=== PATIENT | female | born 1970 | race Caucasian/White ===

== ENCOUNTER 2016-12-12 19:54 | Emergency (ER) | payer OTHER ==
[2016-12-12] MEDS ORDERED: IBUPROFEN 800 MG TAB As Ordered ONE (20:38)
--- NOTE | 2016-12-12 21:48 | EDDOCDS ---
Physician Documentation [facility] Name: Tori Merritt Age: 46 yrs Sex: Female : 1970 Arrival Date: 12/12/2016 Time: 19:54 Bed PR Private MD: Raymundo Hameed G Disposition: 12/12/16 21:39 Discharged to Home/Self Care. Impression: Sprain of lateral collateral ligament of left knee. - Condition is Stable. - Discharge Instructions: Knee Immobilizer, Knee Sprain. - Prescriptions for [place] 5- 325 mg Oral Tablet - take 1 tablet by ORAL route every 6 hours As needed MDD: 4 tabs; 20 tablet. - Medication Reconciliation, Local Pharmacy Hours form. - Follow up: Rom Jean Baptiste; When: Call to arrange an appointment; Reason: Recheck today's complaints, Continuance of care. - Problem is new. - Symptoms are unchanged. Historical: - Allergies: morphine (hallucinations); - Home Meds: 1. paroxetine HCl 10 mg/5 mL Oral susp 20 mL once daily 2. prednisone 20 mg Oral tab 3 tabs tapering dose 3. atenolol 50 mg Oral tab 1 tab once daily 4. captopril 25 mg Oral tab 1 tab 2 times per day - PMHx: Hypertension; Arrhythmia; Kidney stones; - PSHx: Lithotripsy; ; Tubal ligation; ablation, cervix; - Social history: Smoking status: Patient states was never smoker of tobacco. No barriers to communication noted, The patient speaks fluent Urdu, Speaks appropriately for age. - Family history: Not pertinent. - : The pt / caregiver states he / she is not on anticoagulants. Home medication list is obtained from the patient. - Exposure Risk Screening:: None identified. 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 1 in. (154.94 cm) (R); Pain 10/10; 21:32 BP 136 / 88; Pulse 61; Resp 18; Temp 98.3(T); Pulse Ox 97% on R/A; Pain 8/10; ar3 21:47 Pain 6/10; slm 19:55 Body Mass Index 31.18 (74.84 kg, 154.94 cm) elp MDM: 20:37 Ibuprofen 800 mg PO once ordered. mo1 20:38 Knee, Complete Ordered. EDMS 20:46 Financial registration complete. kf3 20:46 [facility] Payment Agreement was scanned into [employer] and attached to record. kf3 21:35 Crutches ordered. mo1 21:45 Esvin Wrap ordered. mo1 Administered Medications: 20:40 Drug: Ibuprofen 800 mg [ibuprofen 800 mg tablet (1 tabs)] Route: PO; cz 21:47 Follow up: Pain 6/10 Adult slm Signatures: Dispatcher [employer] EDMS Marce Brewer RN RN kmg1 Yousuf Torres RN RN cz Alfredo Fallon, Reg Reg kf3 Ted Mehta, PA PA mo1 Amy Horowitz,FRANKI FORKLIFT SUPERVISOR slm The chart was reviewed and I authenticate all verbal orders and agree with the evaluation and treatment provided.Corrections: (The following items were deleted from the chart) 21:44 21:35 Knee Immobilizer ordered. mo1 mo1 Attachments: 20:46 [place] Payment Agreement kf3 MTDD
--- NOTE | 2016-12-12 21:48 | EDDOCDS ---
Nurse's Notes [facility] Name: Tori Merritt Age: 46 yrs Sex: Female : 1970 Arrival Date: 12/12/2016 Time: 19:54 Bed PR1 / Private MD: Raymundo Hameed G Diagnosis: Sprain of lateral collateral ligament of left knee Presentation: 12/12 19:57 Presenting complaint: Patient states: Left knee pain for 2 weeks. Swelling worsening km over that time. Feels a lump on the back of the knee. Was seen at [facility] and told to follow up with ortho. "Knee is not where it should be." Was also seen in ER in the [place]. They in formed her that she needed several tests and procedures but was told "we don't want to give you a big bill tonight." Tonight was bowling and heard an snap in the knee. Now unable to bear weight. Adult Sepsis Screening: The patient does not have new or worsening altered mentation. Patient's respiratory rate is less than 22. Systolic blood pressure is greater than 100. Patient has a qSOFA score of 0- Negative Sepsis Screen. Suicide/Homicide risk assessment- the patient denies having any suicidal and/or homicidal ideations and does not present with any other emotional, behavioral or mental health complaints. Status: Patient is not a software engineer web services or dependent. Transition of care: patient was not received from another setting of care. 19:57 Acuity: MARY JANE Level 4 [facility] 19:57 Method Of Arrival: Walkin/Carried/Asstd [facility] Triage Assessment: 20:08 General: Appears in no apparent distress, uncomfortable, Behavior is appropriate for [facility] age, cooperative. Pain: Location: lateral aspect of left knee, posterior aspect of left knee, medial aspect of left knee and left knee Pain currently is 10 out of 10 on a pain scale. Quality of pain is described as stabbing, throbbing. Pt Declines HIV testing. Musculoskeletal: Reports pain in lateral aspect of left knee, posterior aspect of left knee, medial aspect of left knee and left knee. 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 paroxetine HCl 10 mg/5 mL Oral susp 20 mL once daily 2. prednisone 20 mg Oral tab 3 tabs tapering dose 3. atenolol 50 mg Oral tab 1 tab once daily 4. captopril 25 mg Oral tab 1 tab 2 times per day - PMHx: Hypertension; Arrhythmia; Kidney stones; - PSHx: Lithotripsy; ; Tubal ligation; ablation, cervix; - Social history: Smoking status: Patient states was never smoker of tobacco. No barriers to communication noted, The patient speaks fluent Luxembourgish, Speaks appropriately for age. - Family history: Not pertinent. - : The pt / caregiver states he / she is not on anticoagulants. Home medication list is obtained from the patient. - Exposure Risk Screening:: None identified. Screenin:41 Screening information is obtained from the patient. Fall risk: No risks identified. cz Assistance ADL's: requires no assistance with activities of daily living. Abuse/DV Screen: The patient / caregiver reports he/she is: not in a situation that causes fear, pain or injury. Nutritional screening: No deficits noted. home support is adequate. 21:47 Advance Directives: Currently, there is no health care proxy. There is no active DNR [facility] order. There is no living will. There is no Power of Application Lead. Advance directive information has not previously been placed in an [facility] medical record. Further advance directive information is declined. Assessment: 20:41 General: alert female with left knee and leg pain here for evaluation. cz 21:46 Reassessment: Patient appears in no apparent distress at this time. [facility] Vital Signs: 19:55 BP 152 / 97; Pulse 81; Resp 18; Temp 98.1; Pulse Ox 97% on R/A; Weight 74.84 kg (R); elp Height 5 ft. 1 in. (154.94 cm) (R); Pain 10/10; 21:32 BP 136 / 88; Pulse 61; Resp 18; Temp 98.3(T); Pulse Ox 97% on R/A; Pain 8/10; ar3 21:47 Pain 6/10; slm 19:55 Body Mass Index 31.18 (74.84 kg, 154.94 cm) [facility] Vitals: 19:55 Log In Time: December 12, 2016 at 19:53. [facility] ED Course: 19:55 Patient visited by Rosario Tabor PCA. elp 19:55 Raymundo Hameed is Private Physician. elp 19:55 Patient moved to Waiting elp 19:56 Patient moved to Pre RCE elp 20:02 Triage Initiated kmg1 20:17 Patient moved to Triage 2 rs3 20:20 [facility] mo1 20:20 Bar Olmedo DO is Attending Physician. mo1 20:27 Patient visited by Ted Mehta PA. mo1 20:39 Patient moved to TR3 ar3 20:41 The patient / caregiver is instructed regarding the plan of care and ED course. cz 20:41 No IV's were initiated during this patient's visit. cz 20:46 [place] Payment Agreement was scanned into [employer] and attached to record. kf3 21:21 Patient moved to Radiology susy 21:30 Patient moved to PR1 / 25 ar3 21:33 Patient visited by Pooja Kenny PCA. ar3 21:39 Rom Jean Baptiste is Referral Physician. mo1 21:47 Patient visited by Amy Horowitz LPN. slm 21:47 No procedures done that require assistance. slm Administered Medications: 20:40 Drug: Ibuprofen 800 mg [ibuprofen 800 mg tablet (1 tabs)] Route: PO; cz 21:47 Follow up: Pain 05/07 Adult slm Order Results: There are currently no results for this order. Outcome: 21:39 Discharge ordered by Provider. mo1 21:46 Discharge Assessment: Patient awake, alert and oriented x 3. No cognitive and/or slm functional deficits noted. Patient verbalized understanding of disposition instructions. The following High Risk Discharge criteria are identified: None. Discharged to home with crutches. Condition: stable. Discharge instructions given to patient, Instructed on discharge instructions, follow up and referral plans. medication usage, no driving heavy equipment, crutch walking, Demonstrated understanding of instructions, medications, Pt was receptive of discharge instructions/ teaching. Prescriptions given X 1. No special radiology studies were completed. Property :Personal belongings accompany Pt. 21:47 Discharge Assessment: patient administered narcotics - no. slm 21:47 Patient left the ED. slm Signatures: Marce Brewer RN RN [facility] Yousuf Torres RN RN cz Giovanny Easley Kris, Reg Reg kf3 Malini Garland,RN RN rs3 Pooja Kenny, RENEWABLE ENERGY TRADER RENEWABLE ENERGY TRADER ar3 Ted Mehta PA PA mo1 Rosario Tabor, RENEWABLE ENERGY TRADER RENEWABLE ENERGY TRADER elp Amy Horowitz,INVENTORY ADMINISTRATOR INVENTORY ADMINISTRATOR slm MTDD
--- NOTE | 2016-12-13 02:47 | REP ---
Clinical: Trauma. Technique: AP, lateral, bilateral oblique and sunrise views left knee . Findings: The osseous structures and joint spaces are intact and normal for age. There is no evidence for acute fracture or dislocation. No joint effusion is appreciated. Surrounding soft tissues are unremarkable. No subcutaneous emphysema or radiodense foreign body. Impression: Age appropriate examination. No acute fracture or dislocation. Signed by Jerad Carter MD 12/13/2016 02:39 A
--- NOTE | 2016-12-14 22:48 | EDDOCDS ---
Physician Documentation [facility] Name: Tori Merritt Age: 46 yrs Sex: Female : 1970 Arrival Date: 12/12/2016 Time: 19:54 Bed PR Private MD: Raymundo Hameed G Disposition: 12/12/16 21:39 Discharged to Home/Self Care. Impression: Sprain of lateral collateral ligament of left knee. - Condition is Stable. - Discharge Instructions: Knee Immobilizer, Knee Sprain. - Prescriptions for [place] 5- 325 mg Oral Tablet - take 1 tablet by ORAL route every 6 hours As needed MDD: 4 tabs; 20 tablet. - Medication Reconciliation, Local Pharmacy Hours form. - Follow up: Rom Jean Baptiste; When: Call to arrange an appointment; Reason: Recheck today's complaints, Continuance of care. - Problem is new. - Symptoms are unchanged. Historical: - Allergies: morphine (hallucinations); - Home Meds: 1. paroxetine HCl 10 mg/5 mL Oral susp 20 mL once daily 2. prednisone 20 mg Oral tab 3 tabs tapering dose 3. atenolol 50 mg Oral tab 1 tab once daily 4. captopril 25 mg Oral tab 1 tab 2 times per day - PMHx: Hypertension; Arrhythmia; Kidney stones; - PSHx: Lithotripsy; ; Tubal ligation; ablation, cervix; - Social history: Smoking status: Patient states was never smoker of tobacco. No barriers to communication noted, The patient speaks fluent Georgian, Speaks appropriately for age. - Family history: Not pertinent. - : The pt / caregiver states he / she is not on anticoagulants. Home medication list is obtained from the patient. - Exposure Risk Screening:: None identified. 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 1 in. (154.94 cm) (R); Pain 10/10; 21:32 BP 136 / 88; Pulse 61; Resp 18; Temp 98.3(T); Pulse Ox 97% on R/A; Pain 8/10; ar3 21:47 Pain 6/10; slm 19:55 Body Mass Index 31.18 (74.84 kg, 154.94 cm) elp MDM: 20:37 Ibuprofen 800 mg PO once ordered. mo1 20:38 Knee, Complete Ordered. EDMS 20:46 Financial registration complete. kf3 20:46 [facility] Payment Agreement was scanned into [employer] and attached to record. kf3 21:35 Crutches ordered. mo1 21:45 Esvin Wrap ordered. mo1 22:29 T-Sheet-- Draft Copy was scanned into [employer] and attached to record. klr Administered Medications: 20:40 Drug: Ibuprofen 800 mg [ibuprofen 800 mg tablet (1 tabs)] Route: PO; cz 21:47 Follow up: Pain 6/10 Adult slm Signatures: Dispatcher [employer] EDMS Marce Brewer RN RN kmg1 Yousuf Torres RN RN cz Alfredo Fallon, Reg Reg kf3 Ted Mehta, PA PA mo1 Amy Horowitz LPN LPN slm Tracy Viveros klsarah The chart was reviewed and I authenticate all verbal orders and agree with the evaluation and treatment provided.Corrections: (The following items were deleted from the chart) 21:44 21:35 Knee Immobilizer ordered. mo1 mo1 Attachments: 20:46 [facility] Payment Agreement kf3 22:29 T-Sheet-- Draft Copy klr Chart Complete MTDD
--- NOTE | 2016-12-14 22:48 | EDDOCDS ---
[facility] Name: Tori Merr[facility] Age: 46 yrs Sex: Female : 1970 Arrival Date: 12/12/2016 Time: 19:54 Bed PR Private MD: Raymundo Hameed G Disposition: 12/12/16 21:39 Discharged to Home/Self Care. Impression: Sprain of lateral collateral ligament of left knee. - Condition is Stable. - Discharge Instructions: Knee Immobilizer, Knee Sprain. - Prescriptions for [place] 5- 325 mg Oral Tablet - take 1 tablet by ORAL route every 6 hours As needed MDD: 4 tabs; 20 tablet. - Medication Reconciliation, Local Pharmacy Hours form. - Follow up: Rom Jean Baptiste; When: Call to arrange an appointment; Reason: Recheck today's complaints, Continuance of care. - Problem is new. - Symptoms are unchanged. Historical: - Allergies: morphine (hallucinations); - Home Meds: 1. paroxetine HCl 10 mg/5 mL Oral susp 20 mL once daily 2. prednisone 20 mg Oral tab 3 tabs tapering dose 3. atenolol 50 mg Oral tab 1 tab once daily 4. captopril 25 mg Oral tab 1 tab 2 times per day - PMHx: Hypertension; Arrhythmia; Kidney stones; - PSHx: Lithotripsy; ; Tubal ligation; ablation, cervix; - Social history: Smoking status: Patient states was never smoker of tobacco. No barriers to communication noted, The patient speaks fluent Italian, Speaks appropriately for age. - Family history: Not pertinent. - : The pt / caregiver states he / she is not on anticoagulants. Home medication list is obtained from the patient. - Exposure Risk Screening:: None identified. 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 1 in. (154.94 cm) (R); Pain 10/10; 21:32 BP 136 / 88; Pulse 61; Resp 18; Temp 98.3(T); Pulse Ox 97% on R/A; Pain 8/10; ar3 21:47 Pain 6/10; slm 19:55 Body Mass Index 31.18 (74.84 kg, 154.94 cm) elp MDM: 20:37 Ibuprofen 800 mg PO once ordered. mo1 20:38 Knee, Complete Ordered. EDMS 20:46 Financial registration complete. kf3 20:46 [facility] Payment Agreement was scanned into [email or web address] and attached to record. kf3 21:35 Crutches ordered. mo1 21:45 Esvin Wrap ordered. mo1 22:29 T-Sheet-- Draft Copy was scanned into [employer] and attached to record. klr Administered Medications: 20:40 Drug: Ibuprofen 800 mg [ibuprofen 800 mg tablet (1 tabs)] Route: PO; cz 21:47 Follow up: Pain 6/10 Adult slm Signatures: Dispatcher [employer] EDMS Marce Brewer RN RN kmg1 Yousuf Torres RN RN cz Alfredo Fallon, Reg Reg kf3 Ted Mehta, PA PA mo1 Amy Horowitz LPN LPN slm Tracy Viveros klsarah The chart was reviewed and I authenticate all verbal orders and agree with the evaluation and treatment provided.Corrections: (The following items were deleted from the chart) 21:44 21:35 Knee Immobilizer ordered. mo1 mo1 Attachments: 20:46 [facility] Payment Agreement kf3 22:29 T-Sheet-- Draft Copy klr Chart Complete MTDD
--- NOTE | 2016-12-14 22:48 | EDDOCDS ---
Nurse's Notes [facility] Name: Tori Merritt Age: 46 yrs Sex: Female : 1970 Arrival Date: 12/12/2016 Time: 19:54 Bed PR1 / Private MD: Raymundo Hameed G Diagnosis: Sprain of lateral collateral ligament of left knee Presentation: 12/12 19:57 Presenting complaint: Patient states: Left knee pain for 2 weeks. Swelling worsening km over that time. Feels a lump on the back of the knee. Was seen at [facility] and told to follow up with ortho. "Knee is not where it should be." Was also seen in ER in the [place]. They in formed her that she needed several tests and procedures but was told "we don't want to give you a big bill tonight." Tonight was bowling and heard an snap in the knee. Now unable to bear weight. Adult Sepsis Screening: The patient does not have new or worsening altered mentation. Patient's respiratory rate is less than 22. Systolic blood pressure is greater than 100. Patient has a qSOFA score of 0- Negative Sepsis Screen. Suicide/Homicide risk assessment- the patient denies having any suicidal and/or homicidal ideations and does not present with any other emotional, behavioral or mental health complaints. Status: Patient is not a sales and service engineer or dependent. Transition of care: patient was not received from another setting of care. 19:57 Acuity: [facility] [place] Level 4 [facility] 19:57 Method Of Arrival: Walkin/Carried/Asstd [facility] Triage Assessment: 20:08 General: Appears in no apparent distress, uncomfortable, Behavior is appropriate for [facility] age, cooperative. Pain: Location: lateral aspect of left knee, posterior aspect of left knee, medial aspect of left knee and left knee Pain currently is 10 out of 10 on a pain scale. Quality of pain is described as stabbing, throbbing. Pt Declines HIV testing. Musculoskeletal: Reports pain in lateral aspect of left knee, posterior aspect of left knee, medial aspect of left knee and left knee. 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 paroxetine HCl 10 mg/5 mL Oral susp 20 mL once daily 2. prednisone 20 mg Oral tab 3 tabs tapering dose 3. atenolol 50 mg Oral tab 1 tab once daily 4. captopril 25 mg Oral tab 1 tab 2 times per day - PMHx: Hypertension; Arrhythmia; Kidney stones; - PSHx: Lithotripsy; ; Tubal ligation; ablation, cervix; - Social history: Smoking status: Patient states was never smoker of tobacco. No barriers to communication noted, The patient speaks fluent Slovenian, Speaks appropriately for age. - Family history: Not pertinent. - : The pt / caregiver states he / she is not on anticoagulants. Home medication list is obtained from the patient. - Exposure Risk Screening:: None identified. Screenin:41 Screening information is obtained from the patient. Fall risk: No risks identified. cz Assistance ADL's: requires no assistance with activities of daily living. Abuse/DV Screen: The patient / caregiver reports he/she is: not in a situation that causes fear, pain or injury. Nutritional screening: No deficits noted. home support is adequate. 21:47 Advance Directives: Currently, there is no health care proxy. There is no active DNR [facility] order. There is no living will. There is no Power of [place]. Advance directive information has not previously been placed in an [facility] medical record. Further advance directive information is declined. Assessment: 20:41 General: alert female with left knee and leg pain here for evaluation. cz 21:46 Reassessment: Patient appears in no apparent distress at this time. [facility] Vital Signs: 19:55 BP 152 / 97; Pulse 81; Resp 18; Temp 98.1; Pulse Ox 97% on R/A; Weight 74.84 kg (R); elp Height 5 ft. 1 in. (154.94 cm) (R); Pain 10/10; 21:32 BP 136 / 88; Pulse 61; Resp 18; Temp 98.3(T); Pulse Ox 97% on R/A; Pain 8/10; ar3 21:47 Pain 6/10; slm 19:55 Body Mass Index 31.18 (74.84 kg, 154.94 cm) [facility] Vitals: 19:55 Log In Time: December 12, 2016 at 19:53. [facility] ED Course: 19:55 Patient visited by Rosario Tabor PCA. elp 19:55 Raymundo Hameed is Private Physician. elp 19:55 Patient moved to Waiting elp 19:56 Patient moved to Pre RCE elp 20:02 Triage Initiated kmg1 20:17 Patient moved to Triage 2 rs3 20:20 Ted Mehta PA is PHCP. mo1 20:20 Bar Omledo DO is Attending Physician. mo1 20:27 Patient visited by Ted Mehta PA. mo1 20:39 Patient moved to TR3 ar3 20:41 The patient / caregiver is instructed regarding the plan of care and ED course. cz 20:41 No IV's were initiated during this patient's visit. cz 20:46 [facility] Payment Agreement was scanned into [employer] and attached to record. kf3 21:21 Patient moved to Radiology susy 21:30 Patient moved to PR1 / 25 ar3 21:33 Patient visited by Pooja Kenny PCA. ar3 21:39 Rom Jean Baptiste is Referral Physician. mo1 21:47 Patient visited by Amy Horowitz LPN. slm 21:47 No procedures done that require assistance. slm 22:29 T-Sheet-- Draft Copy was scanned into [employer] and attached to record. klr 12/13 02:48 Knee, Complete Returned. EDMS Administered Medications: 12/12 20:40 Drug: Ibuprofen 800 mg [ibuprofen 800 mg tablet (1 tabs)] Route: PO; cz 21:47 Follow up: Pain 05/07 Adult slm Order Results: Radiology Order: Knee, Complete Test: Knee, Complete REASON FOR EXAMINATION: Trauma; Clinical: Trauma.; ; Technique: AP, lateral, bilateral oblique and sunrise views left knee .; ; Findings: The osseous structures and joint spaces are intact and normal for age.; There is no evidence for acute fracture or dislocation. No joint effusion is; appreciated. Surrounding soft tissues are unremarkable. No subcutaneous; emphysema or radiodense foreign body.; ; Impression:; Age appropriate examination. No acute fracture or dislocation.; ; ; Signed by; Jerad Carter MD 12/13/2016 02:39 A; Outcome: 21:39 Discharge ordered by Provider. mo1 21:46 Discharge Assessment: Patient awake, alert and oriented x 3. No cognitive and/or slm functional deficits noted. Patient verbalized understanding of disposition instructions. The following High Risk Discharge criteria are identified: None. Discharged to home with crutches. Condition: stable. Discharge instructions given to patient, Instructed on discharge instructions, follow up and referral plans. medication usage, no driving heavy equipment, crutch walking, Demonstrated understanding of instructions, medications, Pt was receptive of discharge instructions/ teaching. Prescriptions given X 1. No special radiology studies were completed. Property :Personal belongings accompany Pt. 21:47 Discharge Assessment: patient administered narcotics - no. slm 21:47 Patient left the ED. [facility] Signatures: Dispatcher [employer] EDMS Marce Brewer, RN RN kmg1 Yousuf Torres RN RN Giovanny Yee Kris, Reg Reg kf3 Malini GarlandRN RN rs3 Pooja Kenny, HEALTH AND WELLNESS DIRECTOR HEALTH AND WELLNESS DIRECTOR ar3 Ted Mehta PA PA mo1 Rosario Tabor, HEALTH AND WELLNESS DIRECTOR HEALTH AND WELLNESS DIRECTOR elp Amy Horowitz LPN LPN Tracy Mckeon Chart Complete RANDI
== END 2016-12-12 21:47 | disposition home or self-care (01) ==
LOC: M ED 19:54
DX: S83.92XA Sprain of unspecified site of left knee, initial encounter (principal); X58.XXXA Exposure to other specified factors, initial encounter; Y92.019 Unspecified place in single-family (private) house as the place of occurrence of the external cause; Y93.E9 Activity, other interior property and clothing maintenance; Y99.0 Civilian activity done for income or pay; I10 Essential (primary) hypertension; I49.9 Cardiac arrhythmia, unspecified; Z87.442 Personal history of urinary calculi; Z79.52 Long term (current) use of systemic steroids; Z79.899 Other long term (current) drug therapy; Z88.8 Allergy status to other drugs, medicaments and biological substances

== ENCOUNTER → 2017-01-14 | Outpatient (CLI) | payer OTHER ==
--- NOTE | 2017-01-14 19:27 | REP ---
Clinical: Left-sided pain and swelling . Technique: Benites scale and color Doppler evaluation using linear high frequency transducer. Findings: Ultrasound examination of the left lower extremity deep venous structures from the common femoral vein to the popliteal vein demonstrates normal compressibility flow and wave patterns in response to respiration and augmentation. There is no evidence for deep venous thrombosis. Impression: No evidence for deep venous thrombosis. Signed by Jerad Carter MD 01/14/2017 07:18 P
== END ==
LOC: M RAD 18:16
PROVIDERS: ATTEND Physician Assistant Surgical
DX: M25.562 Pain in left knee (principal)

== ENCOUNTER → 2018-03-13 | Outpatient (CLI) | payer OTHER | LOC: M RAD 15:35 | DX: N63.10 Unspecified lump in the right breast, unspecified quadrant (principal) | CPT/HCPCS: 77065 ==

== ENCOUNTER → 2018-03-16 | Outpatient (CLI) | payer OTHER | LOC: M RAD 12:41 | DX: M25.562 Pain in left knee (principal) | CPT/HCPCS: 73721 ==

== ENCOUNTER → 2018-08-18 | Outpatient (REF) | payer OTHER | LOC: M SFHCPLAZ 15:39 | DX: D22.5 Melanocytic nevi of trunk (principal) ==

== ENCOUNTER → 2019-01-16 | Outpatient (REF) | payer OTHER | LOC: M SFHCPLAZ 09:55 | PROVIDERS: ATTEND Dermatology | DX: D23.4 Other benign neoplasm of skin of scalp and neck (principal) ==

== ENCOUNTER → 2019-04-08 | Outpatient (CLI) | payer OTHER ==
[2019-04-09 09:59] LABS: RUBELLA IgG QUALITATIVE IMMUNE (IMMUNE)
== END ==
LOC: M LAB 15:16
PROVIDERS: ATTEND Physician Assistant
DX: Z01.84 Encounter for antibody response examination (principal)

== ENCOUNTER → 2019-10-31 | Outpatient (CLI) | payer OTHER ==
--- NOTE | 2019-10-31 07:54 | REP ---
Clinical: Left lower extremity pain status post trauma . Technique: Benites scale and color Doppler evaluation using linear high frequency transducer. Findings: Ultrasound examination of the left lower extremity deep venous structures from the common femoral vein to the popliteal vein demonstrates normal compressibility flow and wave patterns in response to respiration and augmentation. There is no evidence for deep venous thrombosis. Impression: No evidence for deep venous thrombosis. Electronically Signed by Jerad Carter MD 10/31/2019 07:45 A
== END ==
LOC: M RAD 06:27
PROVIDERS: ATTEND Orthopaedic Surgery
DX: M79.622 Pain in left upper arm (principal)

== ENCOUNTER 2019-12-27 05:09 | Emergency (ER) | payer OTHER ==
[~2019-12-27] VITALS: Ht 154.9 cm; Wt 79.2 kg
[2019-12-27] MEDS ORDERED: SIMV10TA21 PO (05:41)
[2019-12-27] MEDS ORDERED: CAPT1TAB17 PO (05:41)
[2019-12-27] MEDS ORDERED: PAXI20TA29 PO (05:41)
[2019-12-27] MEDS ORDERED: LEVO25TA5 PO (05:41)
[2019-12-27] MEDS ORDERED: cloNIDine 0.2 MG TAB PO ONE (05:45)
[2019-12-27 05:57] VITALS: BP 167/81
[2019-12-27 05:57] LABS: BASO % 0.4 % (0.0-1.0); EOS # 0.2 10^3/uL (0.0-0.5); EOS % 2.3 % (0.0-3.0); HEMATOCRIT 41.7 % (36.0-47.0); HEMOGLOBIN 12.8 g/dl (12.0-15.5); LYMPH # 2.1 10^3/uL (1.5-5.0); LYMPH % 24.5 % (24.0-44.0); MEAN CORPUSCULAR HEMOGLOBIN 29.1 pg (27.0-33.0); MEAN CORPUSCULAR HGB CONC 30.7 g/dl (32.0-36.5); MEAN CORPUSCULAR VOLUME 94.8 fl (80.0-96.0); MONO # 0.7 10^3/uL (0.0-0.8); MONO % 8.5 % (0.0-5.0); NEUTROPHILS # 5.4 10^3/uL (1.5-8.5); NEUTROPHILS % 63.7 % (36.0-66.0); PLATELET COUNT, AUTOMATED 354 10^3/uL (150-450); WHITE BLOOD COUNT 8.4 10^3/uL (4.0-10.0)
[2019-12-27 06:09] LABS: BLOOD UREA NITROGEN 18 MG/DL (7-18); CALCIUM LEVEL 8.4 MG/DL (8.5-10.1); CARBON DIOXIDE LEVEL 30 MEQ/L (21-32); CHLORIDE LEVEL 103 MEQ/L (98-107); CREATININE FOR GFR 0.74 MG/DL (0.55-1.30); GLOMERULAR FILTRATION RATE > 60.0 (>58); GLUCOSE, FASTING 100 MG/DL (70-100); POTASSIUM SERUM 4.3 MEQ/L (3.5-5.1); SODIUM LEVEL 139 MEQ/L (136-145)
[2019-12-27] MEDS ORDERED: SUMAtriptan SUCCINATE 6 MG/0.5 ML VIAL SC ONE (06:15)
--- NOTE | 2019-12-27 06:18 | REPVR ---
PROCEDURE INFORMATION: Exam: CT Head Without Contrast Exam date and time: 12/27/2019 5:40 AM Age: 49 years old Clinical indication: Pain; Headache not specified; Patient HX: High BP; Additional info: CARTER TECHNIQUE: Imaging protocol: Computed tomography of the head without contrast. Radiation optimization: All CT scans at this facility use at least one of these dose optimization techniques: automated exposure control; mA and/or kV adjustment per patient size (includes targeted exams where dose is matched to clinical indication); or iterative reconstruction. COMPARISON: CT Head without contrast 04/30/2015 3:45 PM FINDINGS: Brain: The cortical/white matter interfaces are preserved throughout the brain. There is no evidence of intracranial hemorrhage. No parenchymal mass lesions identified. Ventricles: The ventricular system is normal in size and configuration. Bones/joints: No acute fractures of the skull are identified. Sinuses: The visualized paranasal sinuses are clear. Mastoid air cells: The visualized mastoid air cells are clear. Soft tissues: The soft tissues appear unremarkable. IMPRESSION: Normal appearance of the brain. Electronically signed by: Danita Scherer On 12/27/2019 06:17:56 AM
[2019-12-27 07:14] LABS: ERYTHROCYTE SEDIMENTATION RATE 10 mm/hr (0-20)
[2019-12-27] MEDS ORDERED: KETOROLAC 30 MG/ML VIAL (J1885) IV ONE (07:15)
[2019-12-27] MEDS ORDERED: METOCLOPRAMIDE INJ 10MG/2ML VIAL (J2765) IV ONE (07:15)
[2019-12-27] MEDS ORDERED: NS 1,000 ML IV ONE (07:15)
[2019-12-27] MEDS ORDERED: ACETAMINOPHEN 500 MG TAB PO ONE (07:15)
[2019-12-27] MEDS ORDERED: VALPROATE SOD INJ 1,000 MG in D5W 50 ML IV ONE ×2 (09:30→10:00)
[2019-12-27] MEDS ORDERED: MAG SULF 1GM/100ML (MAG RUN) 1 GM in IV 1 EA IV ONE (09:30)
[2019-12-27 09:53] LABS: HCG, SERUM QUALITATIVE NEGATIVE (NEGATIVE)
--- NOTE | 2019-12-27 12:38 | REPVR ---
PROCEDURE INFORMATION: Exam: MR Head Without Contrast Exam date and time: 12/27/2019 11:44 AM Age: 49 years old Clinical indication: Pain; Headache not specified; Patient HX: Headache, double vision TECHNIQUE: Imaging protocol: MR of the head without contrast. COMPARISON: MRI-Brain without Contrast 09/03/2013 3:44 PM FINDINGS: Brain: There is no acute intracranial hemorrhage, cerebral edema, or midline shift. No restricted diffusion is present to suggest acute infarction. Several small foci of increased T2 and FLAIR signal within the periventricular and subcortical white matter are present. This is nonspecific but could represent early chronic microangiopathic ischemic changes, the sequela of migraine headaches, demyelinating disease, prior trauma, or less likely Lyme disease. Clinical correlation is recommended. Ventricles: No hydrocephalus. Bones/joints: Unremarkable. Soft tissues: Unremarkable. Sinuses: Normal as visualized. No acute sinusitis. Mastoid air cells: Normal as visualized. No mastoid effusion. Orbits: Unremarkable. Sella: There is a 5 mm nodule along the superior margin of the pituitary gland, new since the previous MRI. This is incompletely evaluated on this exam, but could represent an adenoma. A follow-up nonemergent enhanced pituitary microadenoma protocol MRI is suggested. IMPRESSION: 1. No acute intracranial abnormality 2. 5 mm nodule along the superior margin of the pituitary gland, new since the previous MRI. This is incompletely evaluated on this exam, but could represent an adenoma. A follow-up nonemergent enhanced pituitary microadenoma protocol MRI is suggested. Electronically signed by: Alec Avilez On 12/27/2019 12:37:42 PM
[2019-12-27 13:38] VITALS: BP 135/63
== END 2019-12-27 13:43 | disposition home or self-care (01) ==
LOC: M ED 05:09
DX: R51 Headache (principal); I10 Essential (primary) hypertension; F41.9 Anxiety disorder, unspecified; Z87.891 Personal history of nicotine dependence; Z88.5 Allergy status to narcotic agent
CPT/HCPCS: 70450; 70551; 80048; 82375; 84703; 85025; 85652; 96361; 96372; 96374; 96375; 99285; J1885; J2765; J3475

== ENCOUNTER → 2020-08-30 | Outpatient (CLI) | payer OTHER ==
[~2020-08-30] MED LIST: CAPT1TAB17 PO; LEVO25TA5 PO; PAXI20TA29 PO; SIMV10TA21 PO
--- NOTE | 2020-08-31 12:27 | ECGEPIP ---
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
== END ==
LOC: M EKG 11:57
PROVIDERS: ATTEND Orthopaedic Surgery
DX: Z01.810 Encounter for preprocedural cardiovascular examination (principal); M23.221 Derangement of posterior horn of medial meniscus due to old tear or injury, right knee

== ENCOUNTER → 2020-08-30 | Outpatient (CLI) | payer OTHER | LOC: M LABSMTC 11:26 | PROVIDERS: ATTEND Orthopaedic Surgery | DX: Z01.812 Encounter for preprocedural laboratory examination (principal); Z20.828 Contact with and (suspected) exposure to other viral communicable diseases ==

== ENCOUNTER → 2020-10-02 | Outpatient (CLI) | payer OTHER | LOC: M LABSMTC 12:24 | PROVIDERS: ATTEND Orthopaedic Surgery | DX: Z01.812 Encounter for preprocedural laboratory examination (principal); Z20.828 Contact with and (suspected) exposure to other viral communicable diseases ==

== ENCOUNTER → 2021-11-06 | Outpatient (CLI) | payer OTHER ==
[2021-11-09 14:08] LABS: MUMPS VIRUS IgG ANTIBODY 31.8 AU/mL (Immune >10.9); RUBEOLA IgG ANTIBODY >300.0 AU/mL (Immune >16.4)
== END ==
LOC: M WUC 12:19
PROVIDERS: ATTEND Physician Assistant
DX: Z02.1 Encounter for pre-employment examination (principal)

== ENCOUNTER → 2021-12-23 | Outpatient (CLI) | payer OTHER ==
[2021-12-23 10:22] LABS: ALBUMIN 3.4 GM/DL (3.2-5.2); PERCENT SATURATION 18.4 % (13.2-45.0)
== END ==
LOC: M LAB 09:06
PROVIDERS: ATTEND Orthopaedic Surgery Adult Reconstructive Orthopaedic Surgery
DX: Z01.818 Encounter for other preprocedural examination (principal); M25.562 Pain in left knee; M17.12 Unilateral primary osteoarthritis, left knee

== ENCOUNTER 2023-01-25 19:47 | Emergency (ER) | payer OTHER ==
[~2023-01-25] VITALS: Ht 156.2 cm; Wt 78.7 kg
[~2023-01-25 19:47] MED LIST changes: -PAXI20TA29 PO; +PAXI20TA30 PO
[2023-01-26 01:29] VITALS: BP 139/95
== END 2023-01-26 04:09 | disposition home or self-care (01) ==
LOC: M ED 19:47
DX: S86.112A Strain of other muscle(s) and tendon(s) of posterior muscle group at lower leg level, left leg, initial encounter (principal); W00.0XXA Fall on same level due to ice and snow, initial encounter; I10 Essential (primary) hypertension; Z88.6 Allergy status to analgesic agent; Z96.652 Presence of left artificial knee joint; Z79.811 Long term (current) use of aromatase inhibitors; Z79.899 Other long term (current) drug therapy

== ENCOUNTER 2023-07-04 16:59 | Emergency (ER) | payer OTHER ==
[~2023-07-04] VITALS: Ht 154.9 cm; Wt 78.5 kg
[2023-07-04 18:43] LABS: BASO # 0.1 10^3/uL (0.0-0.2); BASO % 0.5 % (0.0-1.0); EOS # 0.2 10^3/uL (0.0-0.5); EOS % 1.7 % (0.0-3.0); HEMATOCRIT 41.9 % (36.0-47.0); HEMOGLOBIN 13.3 g/dl (12.0-15.5); LYMPH # 2.6 10^3/uL (1.5-5.0); LYMPH % 27.2 % (24.0-44.0); MEAN CORPUSCULAR HEMOGLOBIN 29.7 pg (27.0-33.0); MEAN CORPUSCULAR HGB CONC 31.7 g/dl (32.0-36.5); MEAN CORPUSCULAR VOLUME 93.5 fl (80.0-96.0); MONO # 0.6 10^3/uL (0.0-0.8); MONO % 6.5 % (2.0-8.0); NEUTROPHILS # 5.9 10^3/uL (1.5-8.5); NEUTROPHILS % 63.4 % (36.0-66.0); PLATELET COUNT, AUTOMATED 318 10^3/uL (150-450); RED BLOOD COUNT 4.48 10^6/uL (4.00-5.40); WHITE BLOOD COUNT 9.4 10^3/uL (4.0-10.0)
[2023-07-04 19:09] LABS: CK-MB VALUE MASS < 1.0 NG/ML (<3.6)
[2023-07-04 19:11] LABS: BLOOD UREA NITROGEN 14 MG/DL (9-23); CALCIUM LEVEL 8.9 MG/DL (8.5-10.1); CARBON DIOXIDE LEVEL 30 MMOL/L (20-31); CHLORIDE LEVEL 103 MMOL/L (98-107); CPK CREATINE PHOSPHOKINASE 90 U/L (34-145); CREATININE FOR GFR 0.78 MG/DL (0.55-1.30); GLOMERULAR FILTRATION RATE > 60.0 (>51); GLUCOSE, FASTING 99 MG/DL (60-100); MB/CK RELATIVE INDEX 1.11 (< OR =4); POTASSIUM SERUM 4.1 MMOL/L (3.5-5.1); SODIUM LEVEL 142 MMOL/L (136-145)
[2023-07-04 22:18] LABS: CK-MB VALUE MASS < 1.0 NG/ML (<3.6)
[2023-07-04 22:19] LABS: CPK CREATINE PHOSPHOKINASE 92 U/L (34-145); MB/CK RELATIVE INDEX 1.08 (< OR =4)
[2023-07-05 01:37] VITALS: TEMP 96.8
[2023-07-05] MEDS ORDERED: ISOVUE-370 76% 100ML VIAL As Ordered ONE (02:45)
[2023-07-05] MEDS: methylPREDNISolone 125MG 2ML VIAL IV ONE (02:49)
[2023-07-05 04:00] VITALS: BP 144/85; O2SAT 96
[2023-07-05] MEDS ORDERED: PRED20TA PO (04:09)
[2023-07-05] MEDS ORDERED: BENZ200C70 PO (04:09)
== END 2023-07-05 04:25 | disposition home or self-care (01) ==
LOC: M ED 16:59
DX: J45.901 Unspecified asthma with (acute) exacerbation (principal); I10 Essential (primary) hypertension; G43.909 Migraine, unspecified, not intractable, without status migrainosus; E78.5 Hyperlipidemia, unspecified; F10.10 Alcohol abuse, uncomplicated; E03.9 Hypothyroidism, unspecified; Z87.442 Personal history of urinary calculi; Z79.52 Long term (current) use of systemic steroids; Z79.899 Other long term (current) drug therapy
CPT/HCPCS: 71045; 71275; 80048; 82550; 82553; 85025; 87486; 87581; 87633; 87798; 93005; 96374; 99284; J2930; Q9967

== ENCOUNTER 2023-11-15 00:36 | Emergency (ER) | payer OTHER ==
[~2023-11-15] VITALS: Ht 154.9 cm; Wt 81.8 kg
[~2023-11-15 00:36] MED LIST changes: +BENZ200C70 PO; +PRED20TA PO
[2023-11-15] MEDS ORDERED: AMOX500C PO (00:44)
[2023-11-15] MEDS ORDERED: HYDR12CA (00:44)
[2023-11-15 01:39] LABS: RSV AMPLIFICATION POSITIVE (NEGATIVE)
[2023-11-15] MEDS ORDERED: predniSONE 20 MG TAB PO ONE (04:50)
[2023-11-15] MEDS ORDERED: IPRATROPIUM 0.5MG/ALBUTEROL 2.5MG INH SOL UD 3ML (DUONEB) NEB ONE ×2 (04:50)
[2023-11-15] MEDS ORDERED: PRED20TA PO (05:49)
[2023-11-15] MEDS ORDERED: IPRA0.00 NEB (05:51)
[2023-11-15 05:53] VITALS: BP 132/69; TEMP 98.7; O2SAT 93
== END 2023-11-15 06:32 | disposition home or self-care (01) ==
LOC: M ED 00:36
DX: J21.0 Acute bronchiolitis due to respiratory syncytial virus (principal); I10 Essential (primary) hypertension; J45.909 Unspecified asthma, uncomplicated; F32.A Depression, unspecified; E03.9 Hypothyroidism, unspecified; Z87.891 Personal history of nicotine dependence; Z88.5 Allergy status to narcotic agent; Z79.52 Long term (current) use of systemic steroids; Z79.2 Long term (current) use of antibiotics; Z79.899 Other long term (current) drug therapy
CPT/HCPCS: 71046; 87631; 94640; 99283; J7512

== ENCOUNTER → 2023-12-23 | Outpatient (REF) | payer OTHER ==
[~2023-12-23] MED LIST changes: +AMOX500C PO; +HYDR12CA; +IPRA0.00 NEB
[2023-12-23 18:17] LABS: APPEARANCE, URINE HAZY (CLEAR); BACTERIA, URINE AUTO NEGATIVE (NEGATIVE); BILIRUBIN, URINE AUTO NEGATIVE (NEGATIVE); BLOOD, URINE BLOOD NEGATIVE (NEGATIVE); COLOR, URINE YELLOW (YELLOW); GLUCOSE, URINE (UA) AUTO NEGATIVE (NEGATIVE); KETONE, URINE AUTO NEGATIVE (NEGATIVE); LEUKOCYTE ESTERASE, URINE AUTO NEGATIVE (NEGATIVE); MUCUS, URINE SMALL (NEGATIVE); NITRITE, URINE AUTO NEGATIVE (NEGATIVE); PROTEIN, URINE AUTO NEGATIVE (NEGATIVE); RBC, URINE AUTO 0 /HPF (0-3); SPECIFIC GRAVITY URINE AUTO 1.018 (1.002-1.035); SQUAMOUS EPITHELIAL CELL UR AU 1 /HPF (0-6); UROBILINOGEN, URINE AUTO 0.2 mg/dL (0.0-2.0); WBC, URINE AUTO 1 /HPF (0-3)
== END ==
LOC: M SMT 17:01
PROVIDERS: ATTEND Urology
DX: N20.0 Calculus of kidney (principal)

== ENCOUNTER → 2023-12-26 | Outpatient (CLI) | payer OTHER ==
[2023-12-26 16:57] LABS: HEMATOCRIT 42.2 % (36.0-47.0); HEMOGLOBIN 13.4 g/dl (12.0-15.5); MEAN CORPUSCULAR HGB CONC 31.8 g/dl (32.0-36.5); MEAN CORPUSCULAR VOLUME 94.6 fl (80.0-96.0); PLATELET COUNT, AUTOMATED 323 10^3/uL (150-450); RED BLOOD COUNT 4.46 10^6/uL (4.00-5.40); WHITE BLOOD COUNT 9.5 10^3/uL (4.0-10.0)
[2023-12-26 17:28] LABS: ALBUMIN 3.9 G/DL (3.2-5.2); ALKALINE PHOSPHATASE 80 U/L (46-116); ALT/SGPT 66 U/L (7.0-40); AST/SGOT 43 U/L (<34); BILIRUBIN,TOTAL 0.4 MG/DL (0.3-1.2); BLOOD UREA NITROGEN 19 MG/DL (9-23); CALCIUM LEVEL 9.2 MG/DL (8.5-10.1); CARBON DIOXIDE LEVEL 32 MMOL/L (20-31); CHLORIDE LEVEL 103 MMOL/L (98-107); CREATININE FOR GFR 0.72 MG/DL (0.55-1.30); GLOMERULAR FILTRATION RATE > 60.0 (>51); GLUCOSE, FASTING 84 MG/DL (60-100); POTASSIUM SERUM 4.1 MMOL/L (3.5-5.1); SODIUM LEVEL 140 MMOL/L (136-145); TOTAL PROTEIN 7.6 G/DL (5.7-8.2)
== END ==
LOC: M LAB 15:45
PROVIDERS: ATTEND Urology
DX: N20.0 Calculus of kidney (principal)

== ENCOUNTER → 2024-01-05 | Day surgery (SDC) | payer OTHER ==
[~2024-01-05] VITALS: Ht 154.9 cm; Wt 82.7 kg
[~2024-01-05] MED LIST changes: +ACETAMINOPHEN 1000MG 100ML IV BAG As Ordered ONE; +ATOR40TA75 PO; +DULO1CAP4 PO; -HYDR12CA; +HYDR12CA PO; +LIDOCAINE 2% 100MG/5ML SDV (FOR ANES.) As Ordered ONE; +LR 1,000 ML IV SCH; +MACR100C43 PO; +METO1TAB32 PO; +METOCLOPRAMIDE INJ 10MG/2ML VIAL As Ordered ONE; +MIDAZOLAM INJ 2MG/2ML VIAL As Ordered ONE; +ONDANSETRON 4MG 2ML VIAL As Ordered ONE; +OXYB5TAB11 PO; +PYRI1TAB5 PO; +albuterol inhaler; +dexmedeTOMIDine (4MCG/ML)200MCG/50ML BTL (PRECEDEX) As Ordered ONE; +fentaNYL 100 MCG/2 ML INJECTION As Ordered ONE; +propofoL 200 MG/20 ML VIAL As Ordered ONE
[2024-01-05] MEDS: ceFAZolin SOD 2 GM in IV 1 EA IV ONE (09:30)
[2024-01-05 10:45] VITALS: BP 141/81; TEMP 97.2; O2SAT 94
== END | disposition home or self-care (01) ==
LOC: M SDC 07:58
PROVIDERS: ATTEND Urology
DX: N20.0 Calculus of kidney (principal); I10 Essential (primary) hypertension; E78.00 Pure hypercholesterolemia, unspecified; E05.90 Thyrotoxicosis, unspecified without thyrotoxic crisis or storm; J45.909 Unspecified asthma, uncomplicated; G47.30 Sleep apnea, unspecified; Z85.828 Personal history of other malignant neoplasm of skin; Z79.899 Other long term (current) drug therapy; Z88.5 Allergy status to narcotic agent; Z87.891 Personal history of nicotine dependence
CPT/HCPCS: 50590; 52332; 74018; C2617; J0131; J0690; J1100; J2250; J2405; J2765; J3010

== ENCOUNTER → 2024-01-20 | Outpatient (CLI) | payer OTHER ==
[~2024-01-20] MED LIST changes: -ACETAMINOPHEN 1000MG 100ML IV BAG As Ordered ONE; -LIDOCAINE 2% 100MG/5ML SDV (FOR ANES.) As Ordered ONE; -LR 1,000 ML IV SCH; -METOCLOPRAMIDE INJ 10MG/2ML VIAL As Ordered ONE; -MIDAZOLAM INJ 2MG/2ML VIAL As Ordered ONE; -ONDANSETRON 4MG 2ML VIAL As Ordered ONE; -OXYB5TAB11 PO; +OXYB5TAB14 PO; -dexmedeTOMIDine (4MCG/ML)200MCG/50ML BTL (PRECEDEX) As Ordered ONE; -fentaNYL 100 MCG/2 ML INJECTION As Ordered ONE; -propofoL 200 MG/20 ML VIAL As Ordered ONE
== END ==
LOC: M PLAIMG 08:08
PROVIDERS: ATTEND Urology
DX: N20.0 Calculus of kidney (principal)